=== PATIENT | female | born 1965 | race Caucasian/White ===

== ENCOUNTER 2024-12-02 09:04 | Outpatient (OUT) | payer OTHER, SELFPAY ==
[2024-12-02 09:18] LABS: Hemoglobin 13.7 g/dL (12.0-16.0)
--- NOTE | 2024-12-02 09:38 | RT_ITS ---
[facility] Test Date: 2024-12-02 Pat Name: HERB WILL Department: Room: - Gender: Female Mine Manager: Micheline Armstrong RRT : 1965 Requested By: Porfirio Mcmillan Order Number: [id number] Reading MD: Porfirio Mcmillan Interpretive Statements Pulmonary function testing was completed according to ATS criteria. Findings were considered accurate and reproducible. Both pre- and post-bronchodilator values utilized for spirometry. Spirometry (based on pre-bronchodilator values): -FEV1/FVC: Reduced @ 69% -FEV1: Low normal @ 82% -FVC: Normal @ 92% -[id number]%: Reduced @ 53% -There is a positive bronchodilator resposne in MIH34-13%, but diagnostic and clinical significance is unclear. Lung volumes by plethysmography: -RV: Increased @ 151% -TLC: Normal @ 109% Diffusion capacity: -DLCO: Normal @ 85% when corrected for Hb 13.7g/dL Impressions: -Spirometry suggests mild obstruction. An elevated RV suggests air trapping. The diffusion capacity is normal. Overall study may represent asthma with loss of bronchodilator response or asthma-COPD overlap. Clinical correlation required. Electronically Signed On 12-03-2024 16:36:36 EST by Porfirio Mcmillan
[2024-12-02] MEDS: ALBUTEROL SULFATE 2.5 MG/3 ML VIAL NEB IH (09:52)
== END 2024-12-02 09:05 | disposition home or self-care (01) ==
LOC: CARD 09:08
PROVIDERS: PCP Family Medicine; Visit Provider Internal Medicine
DX: J45.909 Unspecified asthma, uncomplicated (principal)
CPT/HCPCS: 36415; 85018; 94060; 94726; 94729

== ENCOUNTER 2024-12-03 09:17 | Outpatient (OUT) | payer OTHER, SELFPAY ==
--- NOTE | 2024-12-03 09:19 | CT_ITS ---
[address] [address] Patient Name: HERB WILL MRN: [id number] date: 1965 Sex: F Assigned Patient Location: CT Current Patient Location: Accession/Order Number: [id number] Exam Date: 12/03/2024 09:30 Report Date: 12/04/2024 09:40 At the request of: ARGENIS TALBERT Procedure: CT chest w con EXAMINATION: CT chest w con HISTORY: Abnormal Finding Lung Field COMPARISON: CT chest 08/21/2024 TECHNIQUE: Multi-planar CT images were obtained without and/or with IV contrast as indicated by examination type. Axial, Coronal, and Sagittal images. Dose reduction techniques were achieved by using automated exposure control and/or adjustment of mA and/or kV according to patient size and/or use of iterative reconstruction technique. FINDINGS: LUNGS: No visible pulmonary disease. PLEURA: No mass, effusion, or pneumothorax. VASCULATURE: No abnormality. SUYAPA: No mass or adenopathy. MEDIASTINUM: No mass or adenopathy. CARDIAC: No enlargement or pericardial thickening.. Coronary artery calcifications: AORTA: No aneurysm or dissection. CHEST WALL: No mass or axillary adenopathy. BONES: No bone lesion or fracture. LIMITED ABDOMEN: No acute findings Limited images of the upper abdomen. OTHER: Negative. CT/CT chest w con IMPRESSION: 1. No suspicious lung findings. Clearing of previously seen patchy and nodular opacities. Electronically authenticated by: LOVE NOLAN Date: 12/04/2024 09:40
== END 2024-12-03 09:18 | disposition home or self-care (01) ==
LOC: CT 09:17
PROVIDERS: PCP Family Medicine; Visit Provider Internal Medicine
DX: R91.8 Other nonspecific abnormal finding of lung field (principal)
CPT/HCPCS: 71260; Q9967